=== PATIENT | female | born 1940 | race Caucasian/White ===

== ENCOUNTER 2017-01-12 22:07 | Emergency (ER) | payer OTHER ==
[~2017-01-12 22:07] MED LIST: ASPIRIN EC325 M2 PO; CARTIA XT240 M1 PO; CLOPIDOGREL75 M1 PO; FLAXSEED OIL1000 M2 PO; LISINOPRIL40 M1 PO; METFORMIN HCL500 M3 PO
[2017-01-12 22:18] VITALS: BP 142/70
--- NOTE | 2017-01-12 22:39 | ED HAND/WRIST INJURY COMPLAINT ---
History of Present Illness General Chief Complaint: Animal/Insect Bite Stated Complaint: PT WAS BIT BY A CAT ON THE RIGHT HAND Source: patient Exam Limitations: no limitations Vital Signs & Intake/Output Vital Signs & Intake/Output Vital Signs Date Time Temp Pulse Resp B/P Pulse O2 O2 Flow FiO2 Ox Delivery Rate 01/12 2218 97.4 88 18 142/70 Allergies Coded Allergies: Antihistamines - Alkylamine (Intermediate, SENSITIVITY 01/12/17) STATINS (Intermediate, UNKNOWN 01/12/17) codeine (Intermediate, SENSITIVITY 01/12/17) niacin (Intermediate, FLUSHING 01/12/17) Uncoded Allergies: NARCOTICS (SENSITIVITY 12/28/11) Reconcile Medications Amoxicillin/Potassium Clav (Augmentin 875-125 Tablet) 875 MG-125 MG TABLET 1 TAB PO BID cat bite cellulitis Aspirin 325 MG TAB 1 TAB PO DAILY HEART/BLOOD (Reported) CLOPIDOGREL BISULFATE (Clopidogrel) 75 MG TAB 1 TAB PO QAM BLOOD THINNER ( Reported) DILTIAZEM HCL (Cartia Xt) 240 MG C24 1 CAP PO DAILY HEART (Reported) apply to affected area(s) Flaxseed Oil (Unknown Strength) SGL (Unknown Dose) PO QAM SUPPLEMENT ( Reported) Lisinopril 40 MG TAB 1.5 TAB PO QAM BP (Reported) Metformin Hydrochloride (Metformin HCl) 500 MG TAB 1,000 MG PO QAM DIABETES ( Reported) Metformin Hydrochloride (Metformin HCl) 500 MG TAB 1 TAB PO QPM DIABETES ( Reported) Triage Note: PER PT BIT BY CAT THIS AFTERNOON NOW WITH SWELLING TO RT HAND CAT UTD Triage Nurses Notes Reviewed? yes HPI: Patient is a 76-year-old female presents complaining of Right to her right hand. Occurred this afternoon. Patient reports a few hours later she noticed redness , swelling to the dorsum of her right hand. Pain is an aching pain currently mild to moderate, worsens with palpation. Patient is unsure of her last tetanus immunization. Patient is right-hand dominant. Patient denies fevers, chills, nausea, vomiting, axillary lymphadenopathy. (TONNY BROOKS,RONNI) Past History Travel History Traveled to [place] past 21 day No Medical History Any Pertinent Medical History? see below for history Neurological: NONE EENT: NONE Cardiovascular: hypertension, hyperlipidemia Respiratory: NONE Gastrointestinal: NONE Hepatic: NONE Renal: NONE Musculoskeletal: NONE Psychiatric: NONE Endocrine: diabetes Blood Disorders: NONE MANAGEMENT INTERN/Reproductive: NONE Surgical History Surgical History: BILATERAL ENDARTERECTOMY Psychosocial History Who do you live with Patient/Self What is your primary language Colombian Tobacco Use: Never used Family History Hx Contributory? No (RONNI KNIGHT) Review of Systems Review of Systems Constitutional: Denies: chills, fever. EENTM: Reports: no symptoms. Respiratory: Denies: cough, short of breath. Cardiovascular: Denies: chest pain. GI: Denies: abdominal pain, nausea, vomiting. Musculoskeletal: Reports: no symptoms. Skin: Reports: see HPI. Neurological/Psychological: Reports: no symptoms. Hematologic/Endocrine: Reports: no symptoms. Immunologic/Allergic: Reports: no symptoms. (RONNI KNIGHT) Physical Exam Physical Exam General Appearance: well developed/nourished, alert, awake Head: atraumatic, normal appearance Eyes: Bilateral: normal appearance. Ears, Nose, Throat: hearing grossly normal Neck: normal inspection, supple, full range of motion Cardiovascular/Respiratory: normal breath sounds, regular rate/rhythm Back: normal inspection, normal range of motion Elbow Left: normal range of motion, normal inspection Hand Left: normal inspection, normal range of motion Hand Right: 2 SMALL PUNCTURE WOUNDS TO THE DORSAL SURFACE OF THE RIGHT HAND WITH SURROUNDING ERYTHEMA AND SWELLING. lYMPHANGITIS STREAKING TO THE PROXIMAL POSTERIOR FOREARM. fULL RANGE OF MOTION OF ALL FINGERS. Neurologic/Tendon: normal sensation, normal motor functions, normal tendon functions Skin: SEE RIGHT HAND EXAM. Lymphatic: NO PALPABLE RIGHT AXILLARY LYMPHADENOPATHY (RONNI KNIGHT) Progress Differential Diagnosis: abscess, cellulitis, foreign body Plan of Care: Orders Procedure Date/time Status XRY-HAND, 3 View RIGHT 01/12 2233 Active Current Medications Sig/Jenny Start time Last Medication Dose Stop Time Status Admin Ampicillin Sodium/ 3,000 MG ONCE ONE 01/12 2245 UNVr Sulbactam Sodium 01/12 2314 (Unasyn) Sodium Chloride 100 ML (Normal Saline 0.9%) Tetanus/Diphtheria 0.5 ML ONCE ONE 01/12 2245 UNVr Toxoids Adsorbed 01/12 2246 (Decavac) Discussed with Dr. Moore. Patient reevaluated. Tolerated antibiotics well. Discussed high risk of infection of cat bites. Given her history of diabetes that she is at high risk for failing outpatient therapy. Patient reports that she cannot stand the hospital this evening. Will start on Augmentin and have patient return immediately if fevers, redness spreading, or worsening of symptoms. (RONNI KNIGHT) Diagnostic Imaging: Viewed by Me: Radiology Read. Discussed w/RAD: Radiology Read. Radiology Impression: PATIENT: CATHERINE PICKETT PRESENT AGE: 76 PATIENT ACCOUNT NO: [id number] : 42 LOCATION: [facility] ORDERING PHYSICIAN: RONNI BROOKS SERVICE DATE: 01/12/17 EXAM TYPE: RAD - XRY-HAND, RIGHT EXAMINATION: XR HAND, RIGHT CLINICAL INFORMATION: CAD by 8 to the dorsal aspect of the right hand. Evaluate for foreign body. COMPARISON: None. TECHNIQUE: AP, lateral, and oblique views of the right hand. FINDINGS: Diffuse demineralization of the visualized bones. No acute osseous or articular abnormality involving the right hand. No cortical destruction or periosteal reaction. No radiopaque foreign bodies. There are scattered foci of air along the dorsal aspect of the right wrist. There are degenerative changes involving the right wrist joint as well as the triscaphe joint. IMPRESSION: No acute osseous or articular abnormality involving the right wrist. Scattered foci of subcutaneous emphysema along the dorsal aspect of the right wrist. No radiopaque foreign bodies. DICTATED BY: LEOBARDO RODRIGUEZ MD DATE/TIME DICTATED:01/12/172299 WELT RANDER:LAITH DATE/TIME TRANSCRIBED:01/12/172299 CONFIDENTIAL, DO NOT COPY WITHOUT APPROPRIATE AUTHORIZATION. <Electronically signed in Other Vendor System> SIGNED BY: LEOBARDO RODRIGUEZ MD 01/12/172304 (RONNI KNIGHT) Departure Departure Time of Disposition: 2312 Disposition: HOME OR SELF CARE Condition: Stable Clinical Impression Primary Impression: Cellulitis Secondary Impressions: Cat bite of right hand Referrals: BRANDON PERALTA MD (PCP/Family) Additional Instructions: Chief your hand elevated above the level of your heart. Warm compresses to the affected area for 10-20 minutes 4-5 times a day. Return to the emergency department immediately if redness spreading, fevers, increasing pain, worsening of symptoms. Departure Forms: Customer Survey General Discharge Information Prescriptions: Current Visit Scripts Amoxicillin/Potassium Clav (Augmentin 875-125 Tablet) 1 TAB PO BID #14 TAB (TONNY BROOKS,RONNI) PA/BRAIDING MACHINE TENDER Co-Sign Statement Statement: ED Attending supervision documentation- [] I saw and evaluated the patient. I have also reviewed all the pertinent lab results and diagnostic results. I agree with the findings and the plan of care as documented in the PA's/BRAIDING MACHINE TENDER's documentation. [X] I have reviewed the ED Record and agree with the PA's/BRAIDING MACHINE TENDER's documentation. [] Additions or exceptions (if any) to the PAs/BRAIDING MACHINE TENDER's note and plan are summarized below: [] (MELISSA ROBLES,PILY De Jesus)
--- NOTE | 2017-01-12 23:05 | RADIOLOGY REPORT ---
EXAMINATION: XR HAND, RIGHT CLINICAL INFORMATION: CAD by 8 to the dorsal aspect of the right hand. Evaluate for foreign body. COMPARISON: None. TECHNIQUE: AP, lateral, and oblique views of the right hand. FINDINGS: Diffuse demineralization of the visualized bones. No acute osseous or articular abnormality involving the right hand. No cortical destruction or periosteal reaction. No radiopaque foreign bodies. There are scattered foci of air along the dorsal aspect of the right wrist. There are degenerative changes involving the right wrist joint as well as the triscaphe joint. IMPRESSION: No acute osseous or articular abnormality involving the right wrist. Scattered foci of subcutaneous emphysema along the dorsal aspect of the right wrist. No radiopaque foreign bodies.
[2017-01-12] MEDS ORDERED: AUGMENTIN 875-1 EACH PO (23:18)
== END 2017-01-12 23:34 ==
LOC: ERH 22:07
DX: S61.451A Open bite of right hand, initial encounter (principal); L03.113 Cellulitis of right upper limb; W55.01XA Bitten by cat, initial encounter
CPT/HCPCS: 73130-RT; 90471; 90714; 96374

== ENCOUNTER 2017-01-13 15:07 | Inpatient (IN) | payer OTHER ==
[~2017-01-13] VITALS: Ht 165.1 cm; Wt 56.7 kg
[~2017-01-13 15:07] MED LIST changes: +AUGMENTIN 875-1 EACH PO
--- NOTE | 2017-01-13 17:02 | ED SKIN/ALLERGY COMPLAINT ---
History of Present Illness General Chief Complaint: Suture Removal/Wound Recheck Stated Complaint: R ARM RECHECK FOR CELLULITIS/CAT BITE Source: patient Exam Limitations: no limitations Vital Signs & Intake/Output Vital Signs & Intake/Output Vital Signs Date Time Temp Pulse Resp B/P Pulse O2 O2 Flow FiO2 Ox Delivery Rate 01/14 1446 98.6 94 20 152/80 99 01/14 1049 110 130/68 01/14 0600 98.2 93 16 140/70 95 Room Air 01/13 2346 98.8 95 20 148/66 96 Room Air ED Intake and Output 01/14 0000 01/13 1200 Intake Total 200 Output Total Balance 200 Intake, Oral 200 Patient 125 lb Weight Allergies Coded Allergies: Antihistamines - Alkylamine (Intermediate, SENSITIVITY 01/13/17) STATINS (Intermediate, UNKNOWN 01/13/17) codeine (Intermediate, SENSITIVITY 01/13/17) niacin (Intermediate, FLUSHING 01/13/17) Uncoded Allergies: NARCOTICS (SENSITIVITY 12/28/11) Reconcile Medications Amoxicillin/Potassium Clav (Augmentin 875-125 Tablet) 875 MG-125 MG TABLET 1 TAB PO BID cat bite cellulitis Aspirin (Ecotrin*) 325 MG TABLET.DR 1 TAB PO DAILY HEART/BLOOD (Reported) Clopidogrel Bisulfate (Clopidogrel) 75 MG TABLET 1 TAB PO QAM BLOOD THINNER ( Reported) Diltiazem HCl (Cartia Xt) 240 MG CAP.ER.24H 1 CAP PO QAM HEART (Reported) Flaxseed Oil (Unknown Strength) CAPSULE (Unknown Dose) PO QAM SUPPLEMENT ( Reported) Lisinopril 40 MG TABLET 1.5 TAB PO QAM BP (Reported) Metformin HCl 500 MG TABLET 1,000 MG PO QAM DM (Reported) Metformin HCl 500 MG TABLET 1 TAB PO QPM DM (Reported) Triage Note: TRIAGE: PT TO ER C/C RECHECK OF CAT BITE TO R ARM. WAS SEEN HERE LAST NIGHT FOR SAME AND WAS ADVISED TO RETURN IF WORSE. STATES HER BLOOD SUGARS HAVE BEEN MORE ELEVATED TODAY WELL. TODAY BETWEEN 144-209, NORMALL IS 100. Triage Nurses Notes Reviewed? yes HPI: This patient is a 76-year-old female who presented to the emergency department today for a recheck of her cellulitis status post cat bite. The patient was seen here in the emergency department last night. She was given an IV dose of Unasyn. She has taken 2 doses of her outpatient Augmentin. She reported that the red streak on her arm has been traveling up her arm. She reported that her blood sugars have been running in the low 200s which is abnormal for her. She reported that usually her blood sugar is below 100 because, "I keep my blood sugar in check." The patient denied any fevers, chills, chest pain, difficult breathing, abdominal pain, nausea, or vomiting. (LUCIA BAKER PA-C) Past History Travel History Traveled to [place] past 21 day No Medical History Any Pertinent Medical History? see below for history Neurological: NONE EENT: NONE Cardiovascular: hypertension, hyperlipidemia Respiratory: NONE Gastrointestinal: NONE Hepatic: NONE Renal: NONE Musculoskeletal: NONE Psychiatric: NONE Endocrine: diabetes Blood Disorders: NONE Cancer(s): NONE GRADER TENDER/Reproductive: NONE Tetanus Vaccine: 01/12/17 Surgical History Surgical History: BILATERAL ENDARTERECTOMY Psychosocial History Who do you live with Patient/Self What is your primary language Latvian Tobacco Use: Never used ETOH Use: denies use Illicit Drug Use: denies illicit drug use Family History Hx Contributory? No (LUCIA BAKER PA-C) Review of Systems Review of Systems Constitutional: Reports: no symptoms. EENTM: Reports: no symptoms. Respiratory: Reports: no symptoms. Cardiovascular: Reports: no symptoms. GI: Reports: no symptoms. Musculoskeletal: Reports: no symptoms. Skin: Reports: see HPI. Neurological/Psychological: Reports: no symptoms. All Other Systems: Reviewed and Negative (LUCIA BAKER PA-C) Physical Exam Physical Exam General Appearance: well developed/nourished, no apparent distress, alert, awake Comments: Well-developed well-nourished person in no acute distress HEENT: Normal EENT exam, head normocephalic, moist mucous membranes Neck: Supple, no lymphadenopathy Back: Normal gait Aspiratory: No respiratory distress. Speaking in full sentences Right upper extremity: Erythema and mild edema noted to the dorsum of the hand extending up the forearm to the antecubital fossa. Radial and brachial pulses 2 + and strong. Mild tenderness to palpation. Full range of motion at the wrist and elbow. Neuro: Alert oriented x3, cranial nerves II through XII grossly intact. Skin: Skin is warm and dry. Psych: Mood and affect is normal (LUCIA BAKER PA-C) Progress Differential Diagnosis: abscess/cellulitis, allergic reaction, contact dermatitis, drug reaction, erythema multiforme, lyme disease, meningitis/sepsis Plan of Care: Orders Procedure Date/time Status CBC WITHOUT DIFFERENTIAL 01/15 600 Active BASIC ELECTROLYTES PLUS BUN&CR 01/15 600 Active Consistent Carbohydrate 2 01/14 B Active Elevate 01/14 0048 Active Pathway - chart 01/14 0005 Active Nursing Misc 01/14 UNK Active Heat/Cold Therapy 01/14 UNK Active Nursing Misc 01/13 UNK Active Current Medications Sig/Jenny Start time Last Medication Dose Stop Time Status Admin Lisinopril 30 MG DAILY 01/14 1000 CAN (Prinivil) Insulin Aspart 0 TIDAC 01/15 800 AC (NovoLOG) Heparin Sodium 5,000 UNIT Q8 01/14 600 AC (Porcine) Departure Departure Disposition: STILL A PATIENT Condition: Stable Clinical Impression Primary Impression: Cellulitis Qualifiers: Site of cellulitis: extremity Site of cellulitis of extremity: upper extremity Laterality: right Qualified Code: L03.113 - Cellulitis of right upper limb Referrals: BRANDON PERALTA MD (PCP/Family) Departure Forms: Customer Survey General Discharge Information Admission Note Spoke With: MEÑO TURNER MD Documentation of Exam: Documentation of any treatments & extenuating circumstances including Concerns Regarding Discharge (functional status, medication knowledge or non-compliance, living conditions, etc.) that warrant an admission rather than observation: [ This patient is a 76-year-old female who presented to the emergency department today for evaluation of the latest. She was seen here yesterday and received one IV dose of Unasyn as well as by mouth Augmentin. Cellulitis has been worsening with redness extending to her antecubital fossa. This patient should be admitted for failed outpatient therapy. She will need IV antibiotics, IV fluids, follow-up blood cultures, trend labs, and close monitoring. Premature discharge could prove medically harmful.] (OLIVIA URBINA,LUCIA) PA/TUNA PURSE SEINER Co-Sign Statement Statement: ED Attending supervision documentation- [] I saw and evaluated the patient. I have also reviewed all the pertinent lab results and diagnostic results. I agree with the findings and the plan of care as documented in the PA's/TUNA PURSE SEINER's documentation. [X] I have reviewed the ED Record and agree with the PA's/TUNA PURSE SEINER's documentation. [] Additions or exceptions (if any) to the PAs/TUNA PURSE SEINER's note and plan are summarized below: [] (KATHY ROBLES,EDY) (Prinivil) Insulin Aspart 0 TIDAC 01/14 08 AC (NovoLOG) Heparin Sodium 5,000 UNIT Q8 01/14 0600 AC (Porcine) Laboratory Tests 01/13/172013: Lactic Acid 1.9 01/13/17 1718: Anion Gap 14, Estimated GFR > 60, BUN/Creatinine Ratio 26.3 H, Glucose 130 H, Lactic Acid 1.7, Calcium 10.5 H, Total Bilirubin 0.4, AST 20, ALT 27, Alkaline Phosphatase 93, Total Protein 8.1, Albumin 4.8, Globulin 3.3, Albumin/Globulin Ratio 1.5, CBC w Diff NO MAN DIFF REQ, RBC 4.17 L, MCV 94.4, MCH 31.3 H, RDW 13.5, MPV 8.5, Gran % 75.5 H, Lymphocytes % 16.0 L, Monocytes % 7.2, Eosinophils % 0.5, Basophils % 0.8, Absolute Granulocytes 7.8 H, Absolute Lymphocytes 1.7, Absolute Monocytes 0.7 H, Absolute Eosinophils 0, Absolute Basophils 0.1, PUBS MCHC 33.1 Microbiology 01/13 175 BLOOD: Blood Culture - RECD 01/13 1718 BLOOD: Blood Culture - RECD Departure Departure Disposition: STILL A PATIENT Condition: Stable Clinical Impression Primary Impression: Cellulitis Qualifiers: Site of cellulitis: extremity Site of cellulitis of extremity: upper extremity Laterality: right Qualified Code: L03.113 - Cellulitis of right upper limb Referrals: BRANDON PERALTA MD (PCP/Family) Departure Forms: Customer Survey General Discharge Information Admission Note Spoke With: JOHNNY ROBLES,[facility] Documentation of Exam: Documentation of any treatments & extenuating circumstances including Concerns Regarding Discharge (functional status, medication knowledge or non-compliance, living conditions, etc.) that warrant an admission rather than observation: [ This patient is a 76-year-old female who presented to the emergency department today for evaluation of the latest. She was seen here yesterday and received one IV dose of Unasyn as well as by mouth Augmentin. Cellulitis has been worsening with redness extending to her antecubital fossa. This patient should be admitted for failed outpatient therapy. She will need IV antibiotics, IV fluids, follow-up blood cultures, trend labs, and close monitoring. Premature discharge could prove medically harmful.]
[2017-01-13 17:30] LABS: ABSOLUTE BASOPHIL COUNT 0.1 /CUMM (0.0-0.2); ABSOLUTE EOSINOPHIL COUNT 0 /CUMM (0.0-0.7); ABSOLUTE GRANULOCYTE CT 7.8 /CUMM (1.4-6.5); ABSOLUTE LYMPH COUNT 1.7 /CUMM (1.2-3.4); ABSOLUTE MONOCYTE COUNT 0.7 /CUMM (0.10-0.60); BASOPHIL % 0.8 % (0.0-2.0); EOSINOPHIL % 0.5 % (0-5); GRANULOCYTE % 75.5 % (42.2-75.2); HEMATOCRIT 39.4 % (37-47); MEAN CORPUSCULAR HGB 31.3 PG (27.0-31.0); MEAN CORPUSCULAR HGB CONC 33.1 G/DL (33.0-37.0); MEAN CORPUSCULAR VOLUME 94.4 FL (81.0-99.0); MEAN PLATELET VOLUME 8.5 FL (7.4-10.4); PLATELET COUNT 251 /CUMM (130-400); RBC DISTRIBUTION WIDTH 13.5 % (11.5-14.5); RED BLOOD CELL CT 4.17 /CUMM (4.20-5.40); WHITE BLOOD CELL COUNT 10.4 /CUMM (4.8-10.8)
--- NOTE | 2017-01-13 20:15 | History & Physical ---
SCOTT RANDHAWA 01/13/17 2015: General Information and HPI MD Statement: I have seen and personally examined CATHERINE PICKETT and documented this H&P. The patient is a 76 year old F who presented with a patient stated chief complaint of right hand pain, swelling, redness status post cat bite. Source of Information: patient, family, old records Exam Limitations: no limitations History of Present Illness: This is a 76-year-old lady with past medical history significant for hypertension, hyperlipidemia, diabetes mellitus, bilateral endarterectomy status post stent placement, history of SVT presented to [facility] emergency department this afternoon with chief complaint of right dorsal aspect of hand redness, swelling, pain status post cat-bite 1 day ago. The patient was seen here in the emergency department last night for cat-bite to right hand. She was given an IV dose of Unasyn and was discharged on Augmentin. She has taken 2 doses of her outpatient Augmentin. She reported that the red streak on her arm has been traveling up her arm. She reported that her blood sugars have been running in the low 200s which is abnormal for her. So she came to emergency room for worsening redness and high sugars. Patient complaining of pain, redness, swelling to her right hand status post cat bite one day ago. Pain is an aching pain currently mild to moderate, worsens with palpation. According to the patient, swelling has been increasing and she was advised to come to emergency room for worse pain or swelling. Patient denied any fever, chills, lymph node swelling. She reports limited range of movements because of pain and swelling. She denies any headache, numbness, weakness, sensory changes, tingling sensation , gait or vision abnormalities, chest pain, racing heart, difficulty breathing, abdominal pain, change in bladder or bowel habits. She denies any smoking history, alcohol abuse or illicit drug Use. Off note patient has long-standing history of type 2 diabetes mellitus. However her sugars were under control. Compliant With medications and diet. Allergies/Medications Allergies: Coded Allergies: Antihistamines - Alkylamine (Intermediate, SENSITIVITY 01/13/17) STATINS (Intermediate, UNKNOWN 01/13/17) codeine (Intermediate, SENSITIVITY 01/13/17) niacin (Intermediate, FLUSHING 01/13/17) Uncoded Allergies: NARCOTICS (SENSITIVITY 12/28/11) Home Med list Amoxicillin/Potassium Clav (Augmentin 875-125 Tablet) 875 MG-125 MG TABLET 1 TAB PO BID cat bite cellulitis Aspirin (Ecotrin*) 325 MG TABLET.DR 1 TAB PO DAILY HEART/BLOOD (Reported) Clopidogrel Bisulfate (Clopidogrel) 75 MG TABLET 1 TAB PO QAM BLOOD THINNER ( Reported) Diltiazem HCl (Cartia Xt) 240 MG CAP.ER.24H 1 CAP PO QAM HEART (Reported) Flaxseed Oil (Unknown Strength) CAPSULE (Unknown Dose) PO QAM SUPPLEMENT ( Reported) Lisinopril 40 MG TABLET 1.5 TAB PO QAM BP (Reported) Metformin HCl 500 MG TABLET 1,000 MG PO QAM DM (Reported) Metformin HCl 500 MG TABLET 1 TAB PO QPM DM (Reported) Compliance With Home Meds: GOOD Past History Travel History Traveled to [place] past 21 day No Medical History Neurological: NONE EENT: NONE Cardiovascular: hypertension, hyperlipidemia Respiratory: NONE Gastrointestinal: NONE Hepatic: NONE Renal: NONE Musculoskeletal: NONE Psychiatric: NONE Endocrine: diabetes Blood Disorders: NONE Cancer(s): NONE AIRLINE CUSTOMER SERVICE AGENT/Reproductive: NONE Tetanus Vaccine: 01/12/17 Surgical History Surgical History: BILATERAL ENDARTERECTOMY Past Family/Social History Psychosocial History Smoking Status: Never Smoked ETOH Use: denies use Illicit Drug Use: denies illicit drug use Review of Systems Review of Systems Constitutional: Denies: chills, diaphoresis, fever, malaise, weakness, unexplained weight loss. EENTM: Denies: blurred vision, double vision, hearing changes, nasal pain, throat pain. Cardiovascular: Denies: chest pain, edema, orthopena, palpitations, peripheral edema, syncope. Respiratory: Denies: cough, hemoptysis, orthopnea, short of breath, sputum production, stridor, wheezing. GI: Denies: abdominal pain, bloating, constipation, diarrhea, nausea, vomiting. Genitourinary: Denies: frequency, hesitation, nocturia. Musculoskeletal: Denies: back pain, joint pain, muscle pain, neck pain. Skin: Reports: erythema. Neurological/Psychological: Denies: ataxia, depressed, dementia, emotional problems, headache, numbness, tingling, tremors. Exam & Diagnostic Data Last 24 Hrs of Vital Signs/I&O Vital Signs Date Time Temp Pulse Resp B/P Pulse O2 O2 Flow FiO2 Ox Delivery Rate 01/13 2346 98.8 95 20 148/66 96 Room Air 01/13 2043 88 155/70 01/13 2043 97.3 88 18 155/70 99 Room Air 01/13 1806 97.0 97 18 152/72 96 Room Air 01/13 1705 Room Air 01/13 1536 98.2 87 20 149/72 97 Room Air Intake & Output 01/14 0800 04/ 0000 01/13 1600 Intake Total 200 Output Total Balance 200 Intake, Oral 200 Patient 56.699 kg 56.699 kg Weight Physical Exam General Appearance Alert, Oriented X3, Cooperative, No Acute Distress Skin No Rashes, No Breakdown HEENT Atraumatic, PERRLA, EOMI, Mucous Membr. moist/pink Neck Supple, No JVD, No thryomegaly Lymphatic Axillary nl, Cervical nl Cardiovascular Regular Rate, Normal S1, Normal S2, No Murmurs Lungs Clear to Auscultation, Normal Air Movement Abdomen Normal Bowel Sounds, Soft, No Tenderness, No Hepatospenomegaly Neurological Normal Speech, Strength at 5/5 X4 Ext, Normal Tone, Sensation Intact, Cranial Nerves 3-12 NL, Reflexes 2+ Extremities No Clubbing, No Cyanosis, Normal Pulses, swelling, redness, warmth, tenderness - right dorsum hand, limited rom Vascular Normal Pulses, Pulses Symmetrical Diagnostic Data Other Results hAnd x-ray No acute osseous or articular abnormality involving the right wrist. Scattered foci of subcutaneous emphysema along the dorsal aspect of the right wrist. No radiopaque foreign bodies. Assessment/Plan Assessment: This is a 76-year-old lady with past medical history significant for hypertension, hyperlipidemia, diabetes mellitus, bilateral endarterectomy status post stent placement, history of SVT presented to [facility] emergency department this afternoon with chief complaint of right dorsal aspect of hand redness, swelling, pain status post cat-bite 1 day ago. The patient was seen here in the emergency department last night for cat-bite to right hand. She was given an IV dose of Unasyn and was discharged on Augmentin. She has taken 2 doses of her outpatient Augmentin. She reported that the red streak on her arm has been traveling up her arm. She reported that her blood sugars have been running in the low 200s which is abnormal for her. So she came to emergency room for worsening redness and high sugars. Vitals on admission-afebrile, heart rate 87, respiratory rate 20, blood pressure 149/72, saturating at 97% on room air. Pertinent labs: CBC unremarkable with No leukocytosis, BP: Calcium 10.5, glucose 130 otherwise unremarkable. Hand x-ray was done in the ED yesterday:No acute osseous or articular abnormality involving the right wrist. Scattered foci of subcutaneous emphysema along the dorsal aspect of the right wrist. No radiopaque foreign bodies. Problem list 1. Right hand cellulitis 2. Hypertension 3. Diabetes mellitus 4. Hyperlipidemia 5. History of SVT Right hand cellulitis Patient presented with right hand swelling, pain, redness status post cat-bite 1 day ago. She was given an IV dose of Unasyn and was discharged on Augmentin 7 days course. She has taken 2 doses of her outpatient Augmentin. She reported that the red streak on her arm has been traveling up her arm. Presented to ER with worsening pain, swelling, redness. Admitted to hospital for outpatient failure of cellulitis. Right wrist swollen and erythematous also has limited range of motion. Erythema starts from dorsal aspect of the right hand just below a decreased extends up to right forearm (6 cm x 20 cm); area was marked. Hand x-ray showed scattered foci of subcutaneous emphysema. * Admitted to general medical floor for further management of cellulitis with IV antibiotics * Monitor vitals closely * Monitor closely for worsening swelling, pain, redness. * Monitor for gas gangrene/crepitus/sensations/pulses. * IV antibiotics Unasyn * Hand elevation * Warm compresses to reduce pain and swelling * Follow-up blood cultures * Follow-up WBC * Received tetanus prophylaxis * Consider surgical consult if worsening swelling, gas gangrene/crepitus. Diabetes: Stable, Accu-Cheks, will hold oral diabetic agents maintaine patient on insulin sliding scale. hOld metformin Hypertension Continue lisinopril 60 mg daily Hyperlipidemia Not on any medication SVT Continue Cardizem 240 mg Carotid artery stenosis Status post bilateral endarterectomy Continue aspirin 325 mg daily Continue Plavix 75 mg daily Patient is DNR/DNI Regular diet DVT prophylaxis subcutaneous heparin Pain medication if necessary As Ranked By This Provider Problem List: 1. Diabetes mellitus type 2 2. History of - hypertension 3. History of carotid endarterectomy 4. Cellulitis Qualifiers Site of cellulitis: extremity Site of cellulitis of extremity: upper extremity Laterality: right Qualified Code: L03.113 - Cellulitis of right upper limb 5. Cat bite of right hand Core Measures/Miscellaneous Acute Coronary Syndrome ACS Diagnosis: No Cerebrovascular Accident CVA/TIA Diagnosis: No Congestive Heart Failure CHF Diagnosis: No Venous Thromboembolism VTE Risk Factors: Age > 40 No [facility] VTE prophylaxis d/t: No contraindications No VTE Pharm Prophylaxis d/t: No contraindications VTE Diagnosis: No VTE Type: NONE VTE Confirmed by (Test): NONE Severe Sepsis Severe Sepsis Present: No Septic Shock Septic Shock Present: No Miscellaneous Documentation Attending Case Discussed With: MEÑO TURNER MD Primary Care Physician: BRANDON PERALTA MD Patient sees these Specialists vascular surgeon Level of Patient Care: General Medicine MIGELPORSHANILDAGEOFF 01/13/17 2015: Resident Review Statement Resident Statement: examined this patient, discussed with financial services intern, agreed with financial services intern Other Findings: Chief complaint: Right upper extremity pain and swelling. This is a 76-year-old lady with past medical history significant for hypertension, hyperlipidemia, diabetes, status post bilateral endarterectomy, history of SVT who presents to the hospital with chief complaint of right upper extremity pain and swelling. Per patient, she had a cat bite on the dorsal aspect of her right hand, below her wrist yesterday. She developed swelling and pain and erythema which was extended to her right forearm. She presented to the hospital received IV Unasyn and was discharged with Augmentin. Per patient, erythema extended further and she came back to the hospital for further evaluation. VSS. Physical exam: AAO 3, NAD, HEENT: Head normocephalic atraumatic, PERRLA, EOMI, normal pharynx, moist mucous membranes neck: Supple, no LAD, no carotid bruit. CV: RRR no murmurs. Lungs: CTA BL Abdomen: Normal bowel sounds, Soft, NT, ND. Extremities: No lower extremity edema, pulses symmetrical. Right upper extremity: Right wrist swollen and erythematous also has limited range of motion. Erythema starts from dorsal aspect of the right hand just below a decreased extends up to right forearm (6 cm x 20 cm); area was marked. Right ear history is also tender to palpation and has limited range of motion due to pain; No crepitus noted. Sensation and pulses intact. Left upper extremity sensation and pulse intact with normal range of motion. Neurology: Normal speech, cranial nerves III-12 intact. Pertinent labs: CBC unremarkable with No leukocytosis, BP: Calcium 10.5, glucose 130 otherwise unremarkable. Hand x-ray was done in the ED yesterday:No acute osseous or articular abnormality involving the right wrist. Scattered foci of subcutaneous emphysema along the dorsal aspect of the right wrist. No radiopaque foreign bodies. Problem list/plan: #Right upper extremity cellulitis: Blood cultures were obtaining the ED, will maintained the patient on IV Unasyn. Would use cold compresses to reduce the pain and swelling. Elevate right upper extremity. Consider surgery consult to improve by tomorrow. #Patient was reported to have positive orthostatic. She denies dizziness able to walk without any problem. Encourage by mouth fluid intake. No indication for IV fluid therapy at this point. #Diabetes: Stable, Accu-Cheks, will hold oral diabetic agents and maintain the patient on insulin sliding scale. 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 #DVT prophylaxis: Subcutaneous heparin. #Patient is DNI DNR. JOHNNY ROBLES,[facility] 01/14/17 1123: Attending Review Statement Attending Statement Attending MD Statement: examined this patient, discuss w/resident/PA/CHART READER, reviewed EMR data (avail)
[2017-01-13 23:46] VITALS: BP 148/66
[2017-01-14 06:00] VITALS: BP 140/70
--- NOTE | 2017-01-14 08:46 | PN- Housestaff ---
Subjective Follow-up For: Right hand cellulitis right Subjective: Patient is seen and examined at bedside sitting comfortable with family members in the room. She reports that she feels her hand pain and swelling is relatively better compared to yesterday. He does not endorse any acute complaints including fever, chills, nausea, vomiting, chest pain, palpitation, dizziness, shortness of breath, abdominal pain or dysuria. No Acute overnight event reported by nursing staff. Review of Systems Constitutional: Reports: no symptoms. Objective Last 24 Hrs of Vital Signs/I&O Vital Signs Date Time Temp Pulse Resp B/P Pulse O2 O2 Flow FiO2 Ox Delivery Rate 01/14 1049 110 130/68 01/14 06 98.2 93 16 140/70 95 Room Air 01/13 2346 98.8 95 20 148/66 96 Room Air 01/13 2043 88 155/70 01/13 2043 97.3 88 18 155/70 99 Room Air 01/13 1806 97.0 97 18 152/72 96 Room Air 01/13 1705 Room Air 01/13 1536 98.2 87 20 149/72 97 Room Air Intake & Output 01/14 1600 01/14 0800 01/14 0000 Intake Total 600 200 Output Total Balance 600 200 Intake, IV 300 Intake, Oral 300 200 Patient 56.699 kg Weight Physical Exam General Appearance: Alert, Oriented X3, Cooperative Skin: mild erythema and minimal swelling of dorsal aspect of right hand, demarcated pen borders intact with no increases spread of rash. Lymphatic: Cervical nl Cardiovascular: Regular Rate, Normal S1, Normal S2 Lungs: Clear to Auscultation, Normal Air Movement Abdomen: Normal Bowel Sounds, Soft, No Tenderness Neurological: Normal Speech, Normal Tone, Cranial Nerves 3-12 NL Extremities: right hand swelling Assessment/Plan Assessment: This is a 76-year-old lady with past medical history significant for hypertension, hyperlipidemia, diabetes, status post bilateral endarterectomy, history of SVT who presents to the hospital with chief complaint of right upper extremity pain and swelling. Per patient, she had a cat bite on the dorsal aspect of her right hand, below her wrist yesterday. She developed swelling and pain and erythema which was extended to her right forearm. She presented to the hospital received IV Unasyn and was discharged with Augmentin. Per patient, erythema extended further and she came back to the hospital for further evaluation. Pertinent labs on admission: CBC unremarkable with No leukocytosis, BP: Calcium 10.5, glucose 130 otherwise unremarkable. Hand x-ray was done in the ED yesterday:No acute osseous or articular abnormality involving the right wrist. Scattered foci of subcutaneous emphysema along the dorsal aspect of the right wrist. No radiopaque foreign bodies. Problem list/plan: #Right upper extremity cellulitis: Blood cultures were obtaining the ED, will maintained the patient on IV Unasyn. Would use cold compresses to reduce the pain and swelling. Elevate right upper extremity. Swelling is relatively improving with no obvious signs of worsening abscess or air formation will therefore defer on surgery consultation. # Patient was reported to have positive orthostatic. She denies dizziness able to walk without any problem. Encourage by mouth fluid intake. No indication for IV fluid therapy at this point. #Diabetes: Stable, Accu-Cheks, will hold oral diabetic agents is maintained patient on insulin sliding scale. #Will continue BUSINESS SUPPORT LIAISON diltiazem, clopidogrel, aspirin. #DVT prophylaxis: Subcutaneous heparin. #Patient is DNI DNR. Problem List: 1. Cellulitis 2. Cat bite of right hand Pain Ratin Pain Location: right hand Pain Goal: Remain pain free Pain Plan: per pain path Tomorrow's Labs & Rationales: CBC
--- NOTE | 2017-01-14 11:21 | Admission Certification ---
Admission Certification Certification Statement - As attending physician, I certify that at the time of - admission, based on clinical presentation, severity of - symptoms, need for further diagnostic testing and - therapeutic interventions, and risk of adverse outcomes - without in-hospital treatment, in my clinical assessment, - this patient requires an acute hospital stay for a minimum - of two nights or longer. I have also considered psychsocial - factors such as support system, advanced age, financial - issues, cognitive issues, and failed out-patient treatments, - past re-admission history, safety of patient, and lack of - compliance as applicable. Specific rationale supporting this admission is: Right hand cellulitis
--- NOTE | 2017-01-14 11:24 | PN- Att Addend ---
Attending Addendum Attending Brief Note Patient reports minimal pain and swelling with no restrictions of range of motion General Appearance: Alert, No Acute Distress Skin: Grossly normal HEENT: PEERLA Neck: Supple, No JVD Cardiovascular: Regular Rate, Normal S1, Normal S2, No Murmurs Lungs: Clear to Auscultation, Normal Air Movement Abdomen: Normal Bowel Sounds, Soft, No Tenderness Neurological: Normal Speech, Strength at 5/5 X4 Ext, Cranial Nerves 3-12 NL, Reflexes 2+ Extremities: Right hand and wrist minimal swelling Vascular: Normal Pulses Assessment 76-year-old with history of hypertension, dyslipidemia, diabetes presenting with right breast cellulitis status post cat bite 2 days back. She failed outpatient Augmentin and presented with worsening redness and swelling. Clinically there is markedly improved cellulitis on Unasyn. We will continue antibiotics for 1 more day and switch to oral in a.m. Plan Continue Unasyn for 1 more day May transition to Augmentin in a.m. if symptoms improved Continue all other home meds Continue insulin sliding scale DVT prophylaxis Current Medications Sig/Jenny Start time Last Medication Dose Route Stop Time Status Admin Ampicillin Sodium/ 1,500 MG Q6 01/13 2359 AC 01/14 Sulbactam Sodium IV 0532 Sodium Chloride 100 ML Aspirin Buffered 325 MG DAILY 01/14 1000 AC 01/14 PO 0927 Clopidogrel Bisulfate 75 MG QAM 01/14 1000 AC 01/14 PO 0927 Diltiazem HCl 240 MG QAM 01/14 1000 AC 01/14 PO 0927 Doxycycline Hyclate 100 MG ONCE ONE 01/13 1745 DC 01/13 Sodium Chloride 100 ML IV 01/13 1850 1805 Heparin Sodium 5,000 UNIT Q8 01/14 0600 AC (Porcine) SC Insulin Aspart 0 TIDAC 01/14 0800 AC SC Lisinopril 30 MG DAILY 01/14 1000 CAN PO Lisinopril 60 MG QAM 01/14 1000 AC 01/14 PO 1049 Metformin HCl 500 MG ONCE ONE 01/13 1845 DC 01/13 PO 01/13 1846 1911 Patient Medication 1 UNIT ONE NR 01/14 1000 OH Teaching ED 01/14 1030 Laboratory Tests 01/13 1718 Chemistry Sodium (137 - 145 mmol/L) 142 Potassium (3.5 - 5.1 mmol/L) 4.3 Chloride (98 - 107 mmol/L) 103 Carbon Dioxide (22 - 30 mmol/L) 25 Anion Gap (5 - 16) 14 BUN (7 - 17 mg/dL) 21 H Creatinine (0.5 - 1.0 mg/dL) 0.8 Estimated GFR (>60 ml/min) > 60 BUN/Creatinine Ratio (7 - 25 %) 26.3 H Glucose (65 - 99 mg/dL) 130 H Lactic Acid (0.7 - 2.1 mmol/L) 1.9 1.7 Calcium (8.4 - 10.2 mg/dL) 10.5 H Total Bilirubin (0.2 - 1.3 mg/dL) 0.4 AST (14 - 36 U/L) 20 ALT (9 - 52 U/L) 27 Alkaline Phosphatase (<127 U/L) 93 Total Protein (6.3 - 8.2 g/dL) 8.1 Albumin (3.5 - 5.0 g/dL) 4.8 Globulin (1.9 - 4.2 gm/dL) 3.3 Albumin/Globulin Ratio (1.1 - 2.2 %) 1.5 Hematology CBC w Diff NO MAN DIFF REQ WBC (4.8 - 10.8 /CUMM) 10.4 RBC (4.20 - 5.40 /CUMM) 4.17 L Hgb (12.0 - 16.0 G/DL) 13.0 Hct (37 - 47 %) 39.4 MCV (81.0 - 99.0 FL) 94.4 MCH (27.0 - 31.0 PG) 31.3 H RDW (11.5 - 14.5 %) 13.5 Plt Count (130 - 400 /CUMM) 251 MPV (7.4 - 10.4 FL) 8.5 Gran % (42.2 - 75.2 %) 75.5 H Lymphocytes % (20.5 - 51.1 %) 16.0 L Monocytes % (1.7 - 9.3 %) 7.2 Eosinophils % (0 - 5 %) 0.5 Basophils % (0.0 - 2.0 %) 0.8 Absolute Granulocytes (1.4 - 6.5 /CUMM) 7.8 H Absolute Lymphocytes (1.2 - 3.4 /CUMM) 1.7 Absolute Monocytes (0.10 - 0.60 /CUMM) 0.7 H Absolute Eosinophils (0.0 - 0.7 /CUMM) 0 Absolute Basophils (0.0 - 0.2 /CUMM) 0.1 PUBS MCHC (33.0 - 37.0 G/DL) 33.1 Vital Signs Date Time Temp Pulse Resp B/P Pulse O2 O2 Flow FiO2 Ox Delivery Rate 01/14 1049 110 130/68 01/14 0600 98.2 93 16 140/70 95 Room Air 01/13 2346 98.8 95 20 148/66 96 Room Air 01/13 2043 88 155/70 01/13 2043 97.3 88 18 155/70 99 Room Air 01/13 1806 97.0 97 18 152/72 96 Room Air 01/13 1705 Room Air 01/13 1536 98.2 87 20 149/72 97 Room Air
[2017-01-14 14:46] VITALS: BP 152/80
[2017-01-14 23:21] VITALS: BP 136/70
[2017-01-15 06:51] VITALS: BP 126/70
--- NOTE | 2017-01-15 08:05 | Patient Discharge Instructions ---
Discharge Instructions General Discharge Information You were seen/treated for: CELLULITIS FROM A CAT BITE Special Instructions: Please seek immediate medical attention if your hand swelling or pain worsen, or you develop fevers Please finish the Augmentin antibioitc course Acute Coronary Syndrome Inclusion Criteria At DC or during hospital stay patient has or had the following: ACS DIAGNOSIS No Discharge Core Measures Meds if any: Prescribed or Continued at Discharge Meds if any: NOT Prescribed or Continued at Discharge Congestive Heart Failure Inclusion Criteria At DC or during hospital stay patient has or had the following: CHF DIAGNOSIS No Discharge Core Measures Meds if any: Prescribed or Continued at Discharge Meds if any: NOT Prescribed or Continued at Discharge Cerebrovascular accident Inclusion Criteria At DC or during hospital stay patient has or had the following: CVA/TIA Diagnosis No Discharge Core Measures Meds if any: Prescribed or Continued at Discharge Meds if any: NOT Prescribed or Continued at Discharge Venous thromboembolism Inclusion Criteria VTE Diagnosis No VTE Type NONE VTE Confirmed by (Test) NONE Discharge Core Measures - Per Current guidelines, there needs to be overlap - treatment for the first 5 days of Warfarin therapy. - If discharged on Warfarin prior to 5 days of - overlap therapy, the patient will need to be - assessed for post discharge needs including - *Post discharge parental anticoagulation - *Warfarin and/or parental anticoagulation education - *Follow up date to check INR post discharge At least 5 days overlap therapy as Inpatient No Meds if any: Prescribed or Continued at Discharge Note: Overlap Therapy is Warfarin and Anticoagulant Meds if any: NOT Prescribed or Continued at Discharge
[2017-01-15 08:32] LABS: ABSOLUTE BASOPHIL COUNT 0 /CUMM (0.0-0.2); ABSOLUTE EOSINOPHIL COUNT 0.1 /CUMM (0.0-0.7); ABSOLUTE GRANULOCYTE CT 4.3 /CUMM (1.4-6.5); ABSOLUTE LYMPH COUNT 2.3 /CUMM (1.2-3.4); ABSOLUTE MONOCYTE COUNT 0.7 /CUMM (0.10-0.60); BASOPHIL % 0.6 % (0.0-2.0); HEMATOCRIT 38.4 % (37-47); MEAN CORPUSCULAR HGB 31.6 PG (27.0-31.0); MEAN CORPUSCULAR HGB CONC 33.3 G/DL (33.0-37.0); MEAN PLATELET VOLUME 9.1 FL (7.4-10.4); PLATELET COUNT 218 /CUMM (130-400); RBC DISTRIBUTION WIDTH 13.7 % (11.5-14.5); RED BLOOD CELL CT 4.04 /CUMM (4.20-5.40); WHITE BLOOD CELL COUNT 7.5 /CUMM (4.8-10.8)
[2017-01-15 09:34] VITALS: BP 110/80
--- NOTE | 2017-01-15 10:41 | PN- Att Addend ---
Attending Addendum Attending Brief Note Events over the weekend noted. The area has redness is much less not red not warm anymore. Patient is a febrile. Will switch to by mouth antibiotics and discharged today follow-up as an outpatient and her blood sugars have been okay in the hospital. Intake & Output 01/15 Intake Total 300 800 840 200 Output Total Balance 300 800 840 200 Intake, IV 300 Intake, Oral 300 800 540 200 Patient 125 lb 125 lb Weight Laboratory Tests 01/15/17 0735: Anion Gap 11, Estimated GFR > 60, BUN/Creatinine Ratio 25.6 H, CBC w Diff NO MAN DIFF REQ, RBC 4.04 L, MCV 95.0, MCH 31.6 H, RDW 13.7, MPV 9.1, Gran % 58.0 , Lymphocytes % 30.5, Monocytes % 9.9 H, Eosinophils % 1.0, Basophils % 0.6, Absolute Granulocytes 4.3, Absolute Lymphocytes 2.3, Absolute Monocytes 0.7 H, Absolute Eosinophils 0.1, Absolute Basophils 0, PUBS MCHC 33.3 01/13/172013: Lactic Acid 1.9 01/13/171717: Anion Gap 14, Estimated GFR > 60, BUN/Creatinine Ratio 26.3 H, Glucose 130 H, Lactic Acid 1.7, Calcium 10.5 H, Total Bilirubin 0.4, AST 20, ALT 27, Alkaline Phosphatase 93, Total Protein 8.1, Albumin 4.8, Globulin 3.3, Albumin/Globulin Ratio 1.5, CBC w Diff NO MAN DIFF REQ, RBC 4.17 L, MCV 94.4, MCH 31.3 H, RDW 13.5, MPV 8.5, Gran % 75.5 H, Lymphocytes % 16.0 L, Monocytes % 7.2, Eosinophils % 0.5, Basophils % 0.8, Absolute Granulocytes 7.8 H, Absolute Lymphocytes 1.7, Absolute Monocytes 0.7 H, Absolute Eosinophils 0, Absolute Basophils 0.1, PUBS MCHC 33.1 Microbiology 01/13 1754 BLOOD: Blood Culture - RES 01/13 1718 BLOOD: Blood Culture - RES Microbiology 01/13 1754 BLOOD: Blood Culture - RES 01/13 1718 BLOOD: Blood Culture - RES Blood cultures negative so far.
--- NOTE | 2017-01-15 10:49 | Discharge Summary ---
Visit Information Visit Dates Admission Date: 01/13/17 Discharge Date: 01/15/17 Hospital Course Course [facility] Primary Care Physician: KATHRYN ROBLES,[facility] Course: 76-year-old white female diabetic had a cat bite on her right forearm and hand. Got infected. Originally on by mouth antibiotics but it got much worse, and the lap in the ER, was admitted for IV antibiotics. With quick improvement of the redness swelling and warmth of the arm. Patient was switched to by mouth antibiotics on January 15 was able to be discharged and followed as an outpatient. Finish her course of antibiotics her sugars were fairly good spied infection. And her blood culture so far negative Complications: None Allergies: Coded Allergies: Antihistamines - Alkylamine (Intermediate, SENSITIVITY 01/13/17) STATINS (Intermediate, UNKNOWN 01/13/17) codeine (Intermediate, SENSITIVITY 01/13/17) niacin (Intermediate, FLUSHING 01/13/17) Uncoded Allergies: NARCOTICS (SENSITIVITY 12/28/11) Pertinent Lab Results: Laboratory Tests 01/15/17 0735: Anion Gap 11, Estimated GFR > 60, BUN/Creatinine Ratio 25.6 H, CBC w Diff NO MAN DIFF REQ, RBC 4.04 L, MCV 95.0, MCH 31.6 H, RDW 13.7, MPV 9.1, Gran % 58.0 , Lymphocytes % 30.5, Monocytes % 9.9 H, Eosinophils % 1.0, Basophils % 0.6, Absolute Granulocytes 4.3, Absolute Lymphocytes 2.3, Absolute Monocytes 0.7 H, Absolute Eosinophils 0.1, Absolute Basophils 0, PUBS MCHC 33.3 01/13/17 2014: Lactic Acid 1.9 01/13/17 1718: Anion Gap 14, Estimated GFR > 60, BUN/Creatinine Ratio 26.3 H, Glucose 130 H, Lactic Acid 1.7, Calcium 10.5 H, Total Bilirubin 0.4, AST 20, ALT 27, Alkaline Phosphatase 93, Total Protein 8.1, Albumin 4.8, Globulin 3.3, Albumin/Globulin Ratio 1.5, CBC w Diff NO MAN DIFF REQ, RBC 4.17 L, MCV 94.4, MCH 31.3 H, RDW 13.5, MPV 8.5, Gran % 75.5 H, Lymphocytes % 16.0 L, Monocytes % 7.2, Eosinophils % 0.5, Basophils % 0.8, Absolute Granulocytes 7.8 H, Absolute Lymphocytes 1.7, Absolute Monocytes 0.7 H, Absolute Eosinophils 0, Absolute Basophils 0.1, PUBS MCHC 33.1 Microbiology 01/13 1754 BLOOD: Blood Culture - RES 01/13 1718 BLOOD: Blood Culture - RES Microbiology Date/Time Procedure - Status Source Growth 01/13 1754 Blood Culture - RES BLOOD 01/13 1718 Blood Culture - RES BLOOD Vital Signs Date Time Temp Pulse Resp B/P Pulse O2 O2 Flow FiO2 Ox Delivery Rate 01/15 09 104 110/80 01/15 0651 97.9 80 16 126/70 97 Room Air 01/14 2321 98.3 85 20 136/70 97 Room Air 01/14 1446 98.6 94 20 152/80 99 01/14 1049 110 130/68 01/14 0600 98.2 93 16 140/70 95 Room Air 01/13 2346 98.8 95 20 148/66 96 Room Air 01/13 2043 88 155/70 01/13 2043 97.3 88 18 155/70 99 Room Air 01/13 1806 97.0 97 18 152/72 96 Room Air 01/13 1705 Room Air 01/13 1536 98.2 87 20 149/72 97 Room Air Laboratory Tests 01/15/17 0735: Anion Gap 11, Estimated GFR > 60, BUN/Creatinine Ratio 25.6 H, CBC w Diff NO MAN DIFF REQ, RBC 4.04 L, MCV 95.0, MCH 31.6 H, RDW 13.7, MPV 9.1, Gran % 58.0 , Lymphocytes % 30.5, Monocytes % 9.9 H, Eosinophils % 1.0, Basophils % 0.6, Absolute Granulocytes 4.3, Absolute Lymphocytes 2.3, Absolute Monocytes 0.7 H, Absolute Eosinophils 0.1, Absolute Basophils 0, PUBS MCHC 33.3 Microbiology Date/Time Procedure - Status Source Growth 01/13 1754 Blood Culture - RES BLOOD Orders Procedure Date/time Status CBC WITHOUT DIFFERENTIAL 01/15 06 Complete BASIC ELECTROLYTES PLUS BUN&CR 01/15 06 Complete House Staff 01/15 UNK Active Discharge Patient 01/15 UNK Active Consistent Carbohydrate 2 01/14 B Active Elevate 01/14 0048 Active Pathway - chart 01/14 0005 Active Nursing Misc 01/14 UNK Active Heat/Cold Therapy 01/14 UNK Active Vital Signs 01/13 2059 Complete Teach/Educate 01/13 2059 Active Pain Treatment and Response 01/13 2059 Active Nutritional Intake, Monitor 01/13 2059 Active Isolation 01/13 2059 Active Intake & Output 01/13 2059 Complete Patient Care Conference 01/13 2059 Active Activity/Ambulation 01/13 2059 Complete Code Status 01/14 2052 Active Pathway - chart 01/14 2016 Active House Staff 01/14 2016 Active Patient Data 01/14 2016 Active Patient Data 01/14 1956 Active LACTIC ACID 01/14 1956 Complete OXYGEN SETUP (GEN) 01/13 1953 Active Saline Lock 01/13 1953 Active Admit to inpatient 01/13 1953 Active Vital Signs 01/13 1953 Active Activity/Ambulation 01/13 1953 Active Code Status 01/13 1953 Complete FingerStick- Glucose 01/13 1704 Active BLOOD CULTURE 01/13 1656 Active LACTIC ACID 01/13 1656 Complete COMPREHENSIVE METABOLIC PANEL 01/13 1656 Complete CBC WITHOUT DIFFERENTIAL 01/13 1656 Complete VTE Mechanical Prophylaxis 01/13 UNK Active Vital Signs 01/13 UNK Complete MISTAKE 01/13 UNK Active Nursing Misc 01/13 UNK Active Intake & Output 01/13 UNK Active FingerStick- Glucose 01/13 UNK Complete Disposition Summary Disposition Principal Diagnosis: Right hand and forearm cellulitis secondary to cat bite Additional Diagnosis: Hypertension Hyperlipidemia Diabetes mellitus 2 Peripheral vascular disease History of SVT Discharge Disposition: home or self care Discharge Instructions General Discharge Information Code Status: Full Code Patient's Diet: Healthy heart diabetic Patient's Activity: As tolerated Follow-Up Instructions/Appts: Follow-up with Dr. Davis Medications at Discharge Discharge Medications: Continue taking these medications: Diltiazem HCl (Cartia Xt) 240 MG CAP.ER.24H 1 Capsule ORAL Every Morning Comments: Last Taken:01/15/17 Time:929 Clopidogrel Bisulfate (Clopidogrel) 75 MG TABLET 1 Tablet ORAL Every Morning Comments: Last Taken:01/15/17 Time:929 Lisinopril (Lisinopril) 40 MG TABLET 1.5 Tablet ORAL Every Morning Comments: Last Taken:01/15/17 Time:929 Aspirin (Ecotrin*) 325 MG TABLET.DR 1 Tablet ORAL DAILY Comments: Last Taken:01/15/17 Time:0930 Metformin HCl (Metformin HCl) 500 MG TABLET 1,000 Milligram ORAL Every Morning Comments: Last Taken:NOT GIVEN IN HOSPITAL Time: Metformin HCl (Metformin HCl) 500 MG TABLET 1 Tablet ORAL Every night Comments: Last Taken:NOT GIVEN IN HOSPITAL Time: Flaxseed Oil (Flaxseed Oil) (Unknown Strength) CAPSULE Unknown Dose ORAL Every Morning Comments: Last Taken:NOT GIVEN IN HOSPITAL Time: Amoxicillin/Potassium Clav (Augmentin 875-125 Tablet) 875 MG-125 MG TABLET 1 Tablet ORAL TWICE DAILY Qty = 14 Comments: Last Taken:NOT GIVEN IN HOSPITAL Time: Copies To: BRANDON DAVIS MD Attending MD Review Statement Documenting Attending: BRANDON DAVIS MD
--- NOTE | 2017-01-15 11:05 | PN- Housestaff ---
Subjective Follow-up For: cellulitis Subjective: Patient is seen and examined at bedside. She does not endorse any acute complaints including fever chills, increase in swelling, nausea, vomiting, chest pain, palpitation, dizziness, abdominal pain or dysuria. No acute overnight event reported by nursing staff. Review of Systems Constitutional: Reports: no symptoms. Objective Last 24 Hrs of Vital Signs/I&O Vital Signs Date Time Temp Pulse Resp B/P Pulse O2 O2 Flow FiO2 Ox Delivery Rate 01/15 0934 104 110/80 01/15 0651 97.9 80 16 126/70 97 Room Air 01/14 2321 98.3 85 20 136/70 97 Room Air Intake & Output 01/15 1600 01/15 0800 01/15 0000 Intake Total 400 300 800 Output Total Balance 400 300 800 Intake, Oral 400 300 800 Physical Exam General Appearance: Alert, Oriented X3, Cooperative Skin: significant improvement of the right dorsal area of the hand with very minimum swelling and erythema compared to previous day Cardiovascular: Regular Rate, Normal S1, Gallops, Rubs Lungs: Clear to Auscultation, Normal Air Movement Abdomen: Normal Bowel Sounds, Soft, No Tenderness Assessment/Plan Assessment: This is a 76-year-old lady with past medical history significant for hypertension, hyperlipidemia, diabetes, status post bilateral endarterectomy, history of SVT who presents to the hospital with chief complaint of right upper extremity pain and swelling. Per patient, she had a cat bite on the dorsal aspect of her right hand, below her wrist yesterday. She developed swelling and pain and erythema which was extended to her right forearm. She presented to the hospital received IV Unasyn and was discharged with Augmentin. Per patient, erythema extended further and she came back to the hospital for further evaluation. Pertinent labs on admission: CBC unremarkable with No leukocytosis, BP: Calcium 10.5, glucose 130 otherwise unremarkable. Hand x-ray was done in the ED yesterday:No acute osseous or articular abnormality involving the right wrist. Scattered foci of subcutaneous emphysema along the dorsal aspect of the right wrist. No radiopaque foreign bodies. Problem list/plan: #Right upper extremity cellulitis: Resolving with significant improvement. Patient is stable for discharge. She will continue home regimen of Augmentin 875 mg twice a day for 6 days to complete a total of 8-10 days of antibiotic treatment for cellulitis. #Diabetes: Stable, Accu-Cheks, will hold oral diabetic agents is maintained patient on insulin sliding scale. #Will continue [employer] diltiazem, clopidogrel, aspirin. #DVT prophylaxis: Subcutaneous heparin. #Patient is DNI DNR. Problem List: 1. Cellulitis 2. Cat bite of right hand Pain Ratin Pain Location: none Pain Goal: Remain pain free Pain Plan: per pain pathway Tomorrow's Labs & Rationales: none-discharge
== END 2017-01-15 10:45 | DRG 603 ==
LOC: ENRESERVTM → ENRESERVDT → ERH 15:07 → 2NA 19:53 → ERHI 19:53 → ENPENDDIS 19:53 → EDBEDREQSVC 20:00 → 2NA 20:53
PROVIDERS: Physician Assistant; Student in an Organized Health Care Education/Training Program; ADMIT Internal Medicine
DX: L03.113 Cellulitis of right upper limb (principal); I47.1 Supraventricular tachycardia; E11.9 Type 2 diabetes mellitus without complications; I73.9 Peripheral vascular disease, unspecified; I10 Essential (primary) hypertension; E78.5 Hyperlipidemia, unspecified; S61.451A Open bite of right hand, initial encounter; W55.01XA Bitten by cat, initial encounter; Z79.84 Long term (current) use of oral hypoglycemic drugs
CPT/HCPCS: 2NASP; 82436; 87040; 96374; J1644